=== PATIENT | male | born 1960 | race Caucasian/White ===

== ENCOUNTER 2021-01-30 09:32 | Inpatient (IN) | payer MEDICAID ==
[~2021-01-30 09:32] MED LIST: ATARAX,VISTARIL50 MG PO; ATIVAN1 MG PO; CITALOPRAM HYDR20 MG PO; CITALOPRAM20 MG PO; FENTANYL T12.5 MCG/H TD; LOPRESSOR25 MG PO; MOBIC15 MG PO; ONDANSETRON HYDR4 M1 PO; OXYCODONE HCL5 MG PO; OXYCODONE HYDROC5 MG PO; PRILOSEC20 M2 PO; RISPERDAL1 M1 PO
[2021-01-30] MEDS ORDERED: COMBIVENT RESPIM4 GM INH (11:44)
[2021-01-30] MEDS ORDERED: DULCOLAX10 M1 R (11:46)
[2021-01-30] MEDS ORDERED: FLEET ENEMA 13133 ML R (11:47)
[2021-01-30] MEDS ORDERED: NATURE'S BLEND F1 MG PO (11:50)
[2021-01-30] MEDS ORDERED: [UNRECOGNIZED DRUG - OTHER] PO (11:52)
[2021-01-30] MEDS ORDERED: SKIN TREATMENT400 GM T (11:54)
[2021-01-30] MEDS ORDERED: ZESTRIL40 MG PO (11:58)
[2021-01-30] MEDS ORDERED: MELATONIN10 M2 PO (11:59)
[2021-01-30] MEDS ORDERED: MILK OF MA400 MG/5 M PO (12:00)
[2021-01-30] MEDS ORDERED: ONE DAILY ESSE0.5 MG PO (12:03)
[2021-01-30] MEDS ORDERED: THIAMINE HCL100 MG PO (12:04)
[2021-01-30] MEDS ORDERED: TYLENOL325 M1 PO (12:05)
[2021-01-30 13:52] VITALS: BP 122/78
[2021-01-30] MEDS ORDERED: TUMS200 MG PO (15:01)
[2021-01-30] MEDS ORDERED: STOOL SOFTENER250 M2 PO (15:03)
[2021-01-30] MEDS ORDERED: DEPAKOTE DR500 MG PO (15:04)
[2021-01-30] MEDS ORDERED: Lovenox40 MG/0.4 SC (15:06)
[2021-01-30] MEDS ORDERED: HALOPERIDOL5 MG/1 M1 IM (15:07)
[2021-01-30] MEDS ORDERED: ONDANSETRON4 MG/2 M3 IM (15:09)
[2021-01-30] MEDS ORDERED: PHENERGAN25 MG/1 M1 IM (15:10)
[2021-01-30] MEDS ORDERED: RISPERDAL0.5 MG PO (15:10)
[2021-01-30 16:09] LABS: BILIRUBIN Negative (Negative); BLOOD Negative (Negative); CLARITY Clear (Clear); COLOR Yellow (Yellow); GLUCOSE Negative (Negative); KETONE Trace (Negative); LEUKO ESTERASE Negative (Negative); NITRITE Negative (Negative); PH 5.5 (4.5-8.0)
[2021-01-30 16:33] LABS: FINE GRANULAR CAST 0-2; HYALINE CAST 0-2; MUCOUS 1+; RBC 0-2 rbc/hpf (0-2); WBC 0-2 wbc/hpf (0-5)
[2021-01-30 19:03] VITALS: BP 99/59
[2021-01-30 20:00] VITALS: BP 108/66
[2021-01-31 06:29] LABS: BASO % 0.2 % (0.0-1.0); EOS # 0.3 10*3/uL (0.0-0.4); EOS % 2.6 % (1.0-4.0); HEMATOCRIT 37.5 % (42.0-52.0); LYMPH # 2.5 10*3/uL (1.3-4.4); LYMPH % 26.3 % (27.0-41.0); MEAN CELL VOLUME 89.9 fl (80.0-94.0); MEAN CORPUSCULAR HGB 28.8 pg (27.0-31.0); MEAN PLATELET VOLUME 10.5 fl (9.6-12.3); MONO # 0.9 10*3/uL (0.1-1.0); MONO % 9.2 % (3.0-9.0); NEUT # 5.8 10*3/uL (2.3-7.9); NEUT % 61.3 % (47.0-73.0); PLATELET COUNT AUTOMATED 217 10*3/uL (130-400); RED BLOOD COUNT 4.17 10*6/uL (4.50-5.90); RED CELL DISTRI WIDTH 14.5 % (0-14.5); WHITE BLOOD COUNT 9.5 10*3/uL (4.8-10.8)
[2021-01-31 06:48] LABS: ALBUMIN 2.5 gm/dl (3.1-4.5); ALKALINE PHOSPHATASE 60 U/L (45-117); BUN 11 mg/dl (7-24); CHLORIDE 107 mmol/L (98-107); CHOLESTEROL 164 mg/dL (<200); CREATININE 0.87 mg/dL (0.70-1.30); LDL CHOLESTEROL 112 mg/dL (9-159); POTASSIUM 4.1 mmol/L (3.5-5.1); SGOT/AST 9 IU/L (3-35); SGPT/ALT 18 U/L (12-78); SODIUM 139 mmol/L (136-145); TOTAL PROTEIN 6.4 gm/dL (6.4-8.2); TRIGLYCERIDES 72 mg/dl (<150)
[2021-01-31 07:23] VITALS: BP 92/64
[2021-01-31 08:25] LABS: VITAMIN D, 25-HYDROXY 27.4 ng/mL (30-100)
[2021-01-31 18:36] VITALS: BP 88/60
[2021-02-01 07:23] VITALS: BP 111/66
[2021-02-01 20:09] VITALS: BP 119/84
[2021-02-02 07:39] VITALS: BP 116/86
[2021-02-02 20:00] VITALS: BP 110/62
[2021-02-03 08:00] VITALS: BP 121/67
[2021-02-03 20:00] VITALS: BP 108/68
[2021-02-04 07:14] VITALS: BP 103/70
[2021-02-04 20:00] VITALS: BP 107/50
[2021-02-05 07:14] VITALS: BP 117/73
[2021-02-05 20:00] VITALS: BP 121/88
[2021-02-06 07:31] VITALS: BP 121/71
[2021-02-06 20:00] VITALS: BP 115/66
[2021-02-07 07:17] VITALS: BP 102/68
[2021-02-07] MEDS ORDERED: INVEGA9 MG PO (11:21)
[2021-02-07] MEDS ORDERED: RIVASTIGMINE1 EAC1 T (11:21)
[2021-02-07] MEDS ORDERED: LACTULOSE20 GM/30 M PO (11:21)
[2021-02-07] MEDS ORDERED: MEMANTINE HCL10 MG PO (11:21)
[2021-02-07] MEDS ORDERED: MIRTAZAPINE15 M2 PO (11:21)
[2021-02-07] MEDS ORDERED: NAMENDA-5 PO (11:21)
[2021-02-07] MEDS ORDERED: DIVALPROEX SOD500 MG PO (11:21)
[2021-02-07] MEDS ORDERED: ROZEREM8 MG PO (11:21)
[2021-02-07] MEDS ORDERED: VITAMIN D3125 MC1 PO (11:21)
== END 2021-02-07 13:54 | DRG 758 ==
LOC: 3N 09:32
PROVIDERS: ADMIT Psychiatry & Neurology Psychiatry; ATTEND Psychiatry & Neurology Psychiatry
PROC: 0HBRXZZ Excision of Toe Nail, External Approach (ICD-10-PCS; principal; 2021-01-31)
PROC: 0HBRXZZ Excision of Toe Nail, External Approach (ICD-10-PCS; 2021-01-31)
PROC: 0HBRXZZ Excision of Toe Nail, External Approach (ICD-10-PCS; 2021-01-31)
PROC: 0HBRXZZ Excision of Toe Nail, External Approach (ICD-10-PCS; 2021-01-31)
PROC: 0HBRXZZ Excision of Toe Nail, External Approach (ICD-10-PCS; 2021-01-31)
PROC: 0HBRXZZ Excision of Toe Nail, External Approach (ICD-10-PCS; 2021-01-31)
PROC: 0HBRXZZ Excision of Toe Nail, External Approach (ICD-10-PCS; 2021-01-31)
PROC: 0HBRXZZ Excision of Toe Nail, External Approach (ICD-10-PCS; 2021-01-31)
PROC: 0HBRXZZ Excision of Toe Nail, External Approach (ICD-10-PCS; 2021-01-31)
PROC: 0HBRXZZ Excision of Toe Nail, External Approach (ICD-10-PCS; 2021-01-31)
DX: F63.81 Intermittent explosive disorder (principal); F03.90 Unspecified dementia, unspecified severity, without behavioral disturbance, psychotic disturbance, mood disturbance, and anxiety; K70.30 Alcoholic cirrhosis of liver without ascites; I12.9 Hypertensive chronic kidney disease with stage 1 through stage 4 chronic kidney disease, or unspecified chronic kidney disease; N18.30 Chronic kidney disease, stage 3 unspecified; J44.9 Chronic obstructive pulmonary disease, unspecified; Z96.659 Presence of unspecified artificial knee joint; B35.1 Tinea unguium; G92 Toxic encephalopathy; F32.9 Major depressive disorder, single episode, unspecified; T50.995A Adverse effect of other drugs, medicaments and biological substances, initial encounter; Y92.89 Other specified places as the place of occurrence of the external cause; Z87.820 Personal history of traumatic brain injury; E43 Unspecified severe protein-calorie malnutrition

== ENCOUNTER 2021-05-02 13:30 | Inpatient (IN) | payer MEDICAID ==
[~2021-05-02] VITALS: Ht 195.5 cm; Wt 127.0 kg
[~2021-05-02 13:30] MED LIST changes: +COMBIVENT RESPIM4 GM INH; +DEPAKOTE DR500 MG PO; +DIVALPROEX SOD500 MG PO; +DULCOLAX10 M1 R; +FLEET ENEMA 13133 ML R; +HALOPERIDOL5 MG/1 M1 IM; +INVEGA9 MG PO; +LACTULOSE20 GM/30 M PO; +Lovenox40 MG/0.4 SC; +MELATONIN10 M2 PO; +MEMANTINE HCL10 MG PO; +MILK OF MA400 MG/5 M PO; +MIRTAZAPINE15 M2 PO; +NAMENDA-5 PO; +NATURE'S BLEND F1 MG PO; +ONDANSETRON4 MG/2 M3 IM; +ONE DAILY ESSE0.5 MG PO; +PHENERGAN25 MG/1 M1 IM; +RISPERDAL0.5 MG PO; +RIVASTIGMINE1 EAC1 T; +ROZEREM8 MG PO; +SKIN TREATMENT400 GM T; +STOOL SOFTENER250 M2 PO; +THIAMINE HCL100 MG PO; +TUMS200 MG PO; +TYLENOL325 M1 PO; +VITAMIN D3125 MC1 PO; +ZESTRIL40 MG PO; +[UNRECOGNIZED DRUG - OTHER] PO
[2021-05-02] MEDS ORDERED: PERCOCET 5-3251 EACH PO (16:22)
[2021-05-02] MEDS ORDERED: KEPPRA1000 MG PO (16:23)
[2021-05-02] MEDS ORDERED: LISINOPRIL20 MG PO (16:24)
[2021-05-02] MEDS ORDERED: ZYPREXA20 M1 PO (16:25)
[2021-05-02] MEDS ORDERED: TRAZODONE150 MG PO (16:26)
[2021-05-02] MEDS ORDERED: FLOMAX0.4 MG PO (16:26)
[2021-05-02 16:52] VITALS: BP 119/65
[2021-05-02 19:12] LABS: BILIRUBIN Negative (Negative); BLOOD Negative (Negative); CLARITY Clear (Clear); COLOR Yellow (Yellow); GLUCOSE Negative (Negative); KETONE Negative (Negative); LEUKO ESTERASE Negative (Negative); NITRITE Negative (Negative); SPECIFIC GRAVITY 1.015 (1.001-1.030); UROBILINOGEN 0.2 E.U./dl (0.0-1.0)
[2021-05-02 19:30] VITALS: BP 96/62
[2021-05-02 19:33] LABS: EPITHELIAL CELLS 0-2; RBC 0-2 rbc/hpf (0-2)
[2021-05-02 19:34] LABS: BACTERIA 1+
[2021-05-02] MEDS ORDERED: BUMETANIDE1 MG PO (19:42)
[2021-05-03 06:24] LABS: BASO % 0.3 % (0.0-1.0); EOS # 0.2 10*3/uL (0.0-0.4); EOS % 2.3 % (1.0-4.0); HEMATOCRIT 27.5 % (42.0-52.0); LYMPH # 2.5 10*3/uL (1.3-4.4); LYMPH % 38.1 % (27.0-41.0); MEAN CELL VOLUME 82.3 fl (80.0-94.0); MEAN CORPUSCULAR HGB CONC 29.1 g/dl (33.0-37.0); MONO # 0.7 10*3/uL (0.1-1.0); MONO % 10.8 % (3.0-9.0); NEUT # 3.2 10*3/uL (2.3-7.9); NEUT % 48.2 % (47.0-73.0); PLATELET COUNT AUTOMATED 240 10*3/uL (130-400); RED BLOOD COUNT 3.34 10*6/uL (4.50-5.90); RED CELL DISTRI WIDTH 17.7 % (0-14.5); WHITE BLOOD COUNT 6.6 10*3/uL (4.8-10.8)
[2021-05-03 06:44] LABS: CHLORIDE 102 mmol/L (98-107); POTASSIUM 3.8 mmol/L (3.5-5.1); SODIUM 138 mmol/L (136-145)
[2021-05-03 07:01] LABS: ALBUMIN 2.5 gm/dl (3.1-4.5); ALKALINE PHOSPHATASE 37 U/L (45-117); BUN 19 mg/dl (7-24); CHOLESTEROL 162 mg/dL (<200); CREATININE 0.96 mg/dL (0.70-1.30); LDL CHOLESTEROL 105 mg/dL (9-159); SGOT/AST 8 IU/L (3-35); SGPT/ALT 11 U/L (12-78); TRIGLYCERIDES 57 mg/dl (<150); VALPROIC ACID (DEPAKENE) 75.1 ug/ml (50-100)
[2021-05-03 08:00] VITALS: BP 108/66
[2021-05-03 10:26] LABS: VITAMIN D, 25-HYDROXY 31.8 ng/mL (30-100)
[2021-05-03 20:00] VITALS: BP 106/53
[2021-05-04 08:00] VITALS: BP 106/69
[2021-05-04 20:00] VITALS: BP 141/70
[2021-05-05 07:59] VITALS: BP 116/62
[2021-05-05 20:51] VITALS: BP 109/60
[2021-05-06 08:00] VITALS: BP 142/68
[2021-05-06 20:00] VITALS: BP 113/64
[2021-05-07 07:59] VITALS: BP 122/74
[2021-05-07 20:00] VITALS: BP 110/61
[2021-05-08 07:23] VITALS: BP 106/65
[2021-05-08 19:53] VITALS: BP 129/66
[2021-05-09 08:00] VITALS: BP 123/74
[2021-05-09] MEDS ORDERED: RIVASTIGMINE TAR3 M1 PO (10:28)
[2021-05-09] MEDS ORDERED: VITAMIN D3125 MC1 PO (10:28)
[2021-05-09] MEDS ORDERED: RISPERIDONE1 MG PO (10:28)
[2021-05-09] MEDS ORDERED: MEMANTINE HCL10 MG PO (10:28)
[2021-05-09] MEDS ORDERED: ROZEREM8 MG PO (10:28)
[2021-05-09] MEDS ORDERED: MIRTAZAPINE15 M2 PO (10:28)
[2021-05-09] MEDS ORDERED: VITAMIN B-1100 M1 PO (10:28)
[2021-05-09] MEDS ORDERED: NATURE'S BLEND F1 MG PO (10:28)
[2021-05-09] MEDS ORDERED: LACTULOSE20 GM/30 M PO (10:28)
[2021-05-09] MEDS ORDERED: DIVALPROEX SOD500 MG PO (10:28)
== END 2021-05-09 16:15 | DRG 758 ==
LOC: 3N 13:30
PROVIDERS: ADMIT Psychiatry & Neurology Psychiatry; ATTEND Psychiatry & Neurology Psychiatry
DX: F63.81 Intermittent explosive disorder (principal); B37.0 Candidal stomatitis; N18.30 Chronic kidney disease, stage 3 unspecified; E44.0 Moderate protein-calorie malnutrition; F33.3 Major depressive disorder, recurrent, severe with psychotic symptoms; B96.20 Unspecified Escherichia coli [E. coli] as the cause of diseases classified elsewhere; R56.9 Unspecified convulsions; N30.00 Acute cystitis without hematuria; I12.9 Hypertensive chronic kidney disease with stage 1 through stage 4 chronic kidney disease, or unspecified chronic kidney disease; F03.90 Unspecified dementia, unspecified severity, without behavioral disturbance, psychotic disturbance, mood disturbance, and anxiety; Z20.822 Contact with and (suspected) exposure to COVID-19; K70.30 Alcoholic cirrhosis of liver without ascites; J44.9 Chronic obstructive pulmonary disease, unspecified; Z68.33 Body mass index [BMI] 33.0-33.9, adult